=== PATIENT | female | born 1985 ===

== ENCOUNTER → 2018-08-10 | Emergency (ER) | payer OTHER ==
[~2018-08-10] VITALS: Ht 152.4 cm; Wt 59.0 kg
[~2018-08-10] MED LIST: CELEBREX200MG PO; CEPHALEXIN500 MG PO; INTESTINEX680 M1 PO; ULTRACET PO
== END | disposition home or self-care (01) ==
LOC: ER 18:19
DX: N39.0 Urinary tract infection, site not specified (principal); R10.2 Pelvic and perineal pain